=== PATIENT | female | born 1955 | race Caucasian/White ===

== ENCOUNTER → 2016-12-28 | Outpatient (CLI) | payer BC ==
[~2016-12-28] VITALS: Ht 167.6 cm; Wt 113.4 kg
[~2016-12-28] MED LIST: ALLOPURINOL 30300 M2 PO; ASPIR 8181 MG PO; HYDROCHLOROTHIA25 M2 PO; LISINOPRIL20 MG PO; RANITIDINE HCL300 MG PO; REMICADE 1100 MG/VIA; SULFAZINE500 MG PO
--- NOTE | ~2016-12-28 | HPC ---
[facility] [place] [address] PAIN MANAGEMENT CONSULTATION Name: VISHAL HINDS Room #: REG [facility] MSteven.#: [id number] Admission: 12/28/16 Attend Phys: Martha Álvarez MD Discharge: Date of : 57 Report #: [id number] THIS REPORT FOR: //name// CC: Martha Mcgrath MD DATE OF SERVICE: 12/28/2016 PRIMARY CARE PHYSICIAN: Malissa Mcgrath MD CHIEF COMPLAINT: Pain in the low back with pain down the right and left leg. HISTORY OF PRESENT ILLNESS: The patient is a 61-year-old female who has been referred to the pain clinic for evaluation of low back pain with pain radiating down into the left and right leg, this is the posterior portion of her leg. She notes a burning, shooting, aching, cramping sensation with numbness and tingling down into her legs. She rates her pain between a 0 and 6 depends on the day. Today, she rates it as a 6. Pain is made worse with movement, bending, driving or sitting with the knees bent. She denies back surgery. She has been having pain since April 2016. States that she has taken and use nonsteroidal anti-inflammatory medications with some GI problems. ALLERGIES: No known drug allergies. MEDICATIONS: Remicade 100 mg, aspirin 81 mg chewable, hydrochlorothiazide 25 mg, lisinopril 20 mg, allopurinol 300 mg, ranitidine 300 mg, sulfasalazine 500 mg 4 times daily. PAST MEDICAL HISTORY: Colon problems, diverticulosis, acid reflux, joint disease/arthritis, history of ulcers, gout, hypercholesterolemia, hypertension, rheumatoid arthritis. PAST SURGICAL HISTORY: Left knee medial cartilage repair in 1975, hysterectomy in 1983, right hand carpal tunnel 1997, colon resection 18 inches removed in 2002, and 2009 hernia repair. SOCIAL HISTORY: She works in [employer]. She is working at this juncture. Denies use of tobacco, 2 drinks per day. She is . REVIEW OF SYSTEMS: Questionnaire 14 point in the chart indicates fatigue, weakness, headaches. Wears glasses, glaucoma/cataracts, chronic problems sinuses, mouth sores, sore throat, chronic frequent coughs, also appetite, nausea, frequent diarrhea, abdominal pain, painful bowel movements, constipation, lightheadedness, dizziness, numbness and tingling sensation in the lower extremities as described above, tremors, memory loss, confusion, [facility] [address] [place] [address] PAIN MANAGEMENT CONSULTATION Name: VISHAL HINDS [id number] Admission: 12/28/16 Attend Phys: Martha Álvarez MD Discharge: Date of : 57 Report #: [id number] nervousness, depression, insomnia, hot and cold intolerance. PHYSICAL EXAMINATION: Height 162 cm, weight 113 kilograms. BMI is 40. Blood pressure 129/71, pulse 90, respiratory rate 16, room air saturation is 97%. The patient has dizziness and vertigo. Sometimes need help standing and walking. Has not fallen in the last 3 months, uses a cane. The patient has positive straight leg raise with exacerbation of pain radiating down into her legs with bending forward. IMPRESSION: 1. Lumbar radiculopathy radiating down into the right leg, most prominent today with numbness, weakness, and tingling. 2. Hypertension. 3. Hypercholesterolemia. 4. History of diverticulitis. 5. Gout. 6. Rheumatoid arthritis. RECOMMENDATIONS: We discussed treatment options with the patient. A model was used to indicate the area of probable pathology. Risks and benefits of the procedure were reviewed. The patient elects to proceed. PROCEDURE NOTE: The patient was placed in the prone position. Fluoroscopy was used to identify the L5-S1 area. The right area was identified and a 17-gauge Tuohy with loss of resistance technique was used to gain access to the epidural space. A total of 80 mg Depo-Medrol, 40 mg triamcinolone and 2 mL of 0.25% bupivacaine was injected. The patient tolerated the procedure well. Her pain decreased from 6 to 0 at the time of discharge. A total of 8 seconds fluoroscopy time was used. The patient will return to the pain clinic in the near future for evaluation and possible additional treatment. We would like to thank you for letting us participate in her care. We hope she continues to improve. By: [id number] Martha Álvarez MD /boy
[2016-12-28 11:02] VITALS: BP 129/71
== END ==
LOC: PAIN 07:27
DX: M54.16 Radiculopathy, lumbar region (principal); I10 Essential (primary) hypertension; E78.00 Pure hypercholesterolemia, unspecified; M06.80 Other specified rheumatoid arthritis, unspecified site; M10.9 Gout, unspecified; F41.8 Other specified anxiety disorders

== ENCOUNTER → 2017-01-25 | Outpatient (CLI) | payer BC ==
[~2017-01-25] VITALS: Ht 165.1 cm; Wt 110.5 kg
[~2017-01-25] MED LIST changes: +ARMOUR THYROID60 M1 PO
--- NOTE | ~2017-01-25 | HPC ---
[facility] [place] [address] PAIN MANAGEMENT CONSULTATION Name: VISHAL HINDS Room #: REG [facility] Dionte.#: [id number] Admission: 01/25/17 Attend Phys: Martha Álvarez MD Discharge: Date of : 57 Report #: [id number] THIS REPORT FOR: //name// CC: Martha Mcgrath PRIMARY CARE PHYSICIAN: Malissa Mcgrath M.D. FOLLOWUP COMPLAINT: Pain improved by greater than 50%, but is still having some discomfort down in the back of my leg. FOLLOWUP HISTORY: The patient is a 61-year-old female who has been seen in the pain clinic because of lumbar radiculopathy. She underwent an epidural steroid injection at the last visit. She has noted that her pain has improved. She is having less intense pain, but still has some weakness, numbness and discomfort along the right lower leg down the L5-S1 distribution. She has had no complication from the procedure. She has not had any problem with her back with her bowels or bladder. She would like to proceed with another injection today. She does note some discomfort in the left side. PHYSICAL EXAMINATION: Blood pressure 117/64, pulse 84, respiratory rate 16, room air saturation is 100, height 5 feet 5 inches, weight 110 kilograms. BMI is 40. The patient has fallen in the last 3 months. She has not fallen since we saw her last. IMPRESSION: 1. Lumbar radiculopathy radiating down into the right leg. Most prominent today with improved pain, but continued numbness, weakness and tingling. 2. Hypertension. 3. Hypercholesterolemia. 4. History of diverticulitis. 5. Gout. 6. Rheumatoid arthritis. RECOMMENDATIONS: We discussed treatment option with the patient. Risks and benefits of the procedure were again reviewed, which could include but are not limited to increased muscle soreness infection, bleeding, headache, worsening of pain, no improvement in pain and the patient elects to proceed. PROCEDURE NOTE: The patient was placed in the prone position. Fluoroscopy was used to identify the right L5-S1 nerve area. This area had been sterilely prepped with Betadine and infiltrated with 0.25% bupivacaine. Total of 80 mg Depo-Medrol, 40 mg triamcinolone and 2 mL of 0.25% bupivacaine was injected. The patient tolerated the procedure well. There were no complications. We [address] [address] PAIN MANAGEMENT CONSULTATION Name: VISHAL HINDS Room #: REG CL [facility]#: [id number] Admission: 01/25/17 Attend Phys: Martha Álvarez MD Discharge: Date of : 57 Report #: [id number] would like to thank you for letting us participate in her care. We hope she continues to improve. By: [id number] Martha Álvarez MD /nt
[2017-01-25 10:11] VITALS: BP 117/64
== END | disposition home or self-care (01) ==
LOC: PAIN 06:34
DX: M54.16 Radiculopathy, lumbar region (principal); I10 Essential (primary) hypertension; E78.00 Pure hypercholesterolemia, unspecified; M10.9 Gout, unspecified; M06.9 Rheumatoid arthritis, unspecified; Z87.19 Personal history of other diseases of the digestive system

== ENCOUNTER → 2017-02-27 | Outpatient (CLI) | payer BC ==
[~2017-02-27] VITALS: Ht 165.1 cm; Wt 111.3 kg
[2017-02-27 10:10] VITALS: BP 118/72
== END ==
LOC: PAIN 06:30
DX: M54.16 Radiculopathy, lumbar region (principal); I10 Essential (primary) hypertension; E78.00 Pure hypercholesterolemia, unspecified; K57.30 Diverticulosis of large intestine without perforation or abscess without bleeding; M10.9 Gout, unspecified; M06.80 Other specified rheumatoid arthritis, unspecified site; Z79.899 Other long term (current) drug therapy; Z79.891 Long term (current) use of opiate analgesic